=== PATIENT | male | born 1955 | race Caucasian/White ===

== ENCOUNTER 2023-10-10 08:21 | Outpatient (CLI) | payer MEDICARE, OTHER, SELFPAY | END 2023-10-10 08:22 | disposition home or self-care (01) | LOC: ANHAUDIO 08:21 | PROVIDERS: PCP Family Medicine; Visit Provider Nurse Practitioner | DX: H90.3 Sensorineural hearing loss, bilateral (principal) | CPT/HCPCS: 92557; 92567 ==